=== PATIENT | male | born 1935 | race Caucasian/White ===

== ENCOUNTER 2018-06-23 14:02 | Emergency (ER) | payer MEDICARE, BC ==
[~2018-06-23] VITALS: Ht 172.7 cm; Wt 72.7 kg
[2018-06-23] MEDS ORDERED: LISI-600 PO (17:24)
[2018-06-23] MEDS ORDERED: ASPI-1265 PO (17:24)
[2018-06-23] MEDS ORDERED: CELE-193 PO (17:24)
[2018-06-23 18:36] VITALS: BP 147/67
== END 2018-06-23 18:39 | disposition home or self-care (01) ==
LOC: ER 14:04
DX: I10 Essential (primary) hypertension (principal); Z98.890 Other specified postprocedural states; Z79.82 Long term (current) use of aspirin; Z79.899 Other long term (current) drug therapy
CPT/HCPCS: 93005; 99283

== ENCOUNTER 2021-01-15 07:51 | Day surgery (SDC) | payer MEDICARE, BC ==
[2021-01-08 11:09] LABS: BASOPHILS % (AUTO) 0.5 % (0-1); EOSINOPHILS # (AUTO) 0.1 X10'3 (0-0.9); EOSINOPHILS % (AUTO) 1.8 % (0-6); LYMPHOCYTES # (AUTO) 2.1 X10'3 (1.1-4.8); LYMPHOCYTES % (AUTO) 37.3 % (21-51); MEAN CORPUSCULAR HEMOGLOBIN 31.8 PG (27.0-31.0); MEAN CORPUSCULAR HGB CONC 33.5 g/dL (33.0-36.5); MEAN CORPUSCULAR VOLUME 94.9 FL (78-98); MEAN PLATELET VOLUME 10.1 FL (7.4-10.4); MONOCYTES # (AUTO) 0.5 X10'3 (0-0.9); NEUTROPHILS % (AUTO) 51.4 % (42-75); PRE OP HEMATOCRIT 45.4 % (42.0-52.0); PRE OP HEMOGLOBIN 15.2 g/dL (14.0-17.9); PRE OP PLATELET COUNT 134 X10'3 (140-440); RED BLOOD COUNT 4.79 X10'6 (4.70-6.10); RED CELL DISTRIBUTION WIDTH 13.8 % (11.5-14.5)
[2021-01-08 11:29] LABS: ALBUMIN 3.9 G/DL (3.4-5.0); ALBUMIN/GLOBULIN RATIO 1.2 (1.1-1.5); ALKALINE PHOSPHATASE 137 IU/L (46-116); CALCIUM 8.5 MG/DL (8.5-10.1); CHLORIDE 107 MMOL/L (99-107); CREATININE 0.98 MG/DL (0.60-1.10); PRE OP ALT 23 U/L (30-65); PRE OP ANION GAP 5 (8-16); PRE OP AST 24 U/L (10-37); PRE OP BILIRUB, TOTAL 0.6 MG/DL (0.0-1.0); PRE OP GLUCOSE 84 MG/DL (70-104); PRE OP POTASSIUM 4.6 MMOL/L (3.4-5.1); PRE OP SODIUM 141 MMOL/L (135-145); TOTAL CARBON DIOXIDE 29.3 MMOL/L (24-32); TOTAL PROTEIN 7.2 G/DL (6.4-8.2); eGFR 73 ML/MIN
[2021-01-08 11:30] LABS: BLOOD UREA NITROGEN 21 MG/DL (7-18); BUN/CREATININE RATIO 21.4 (5.4-32.0)
[~2021-01-15] VITALS: Ht 170.2 cm; Wt 71.0 kg
[~2021-01-15 07:51] MED LIST: AMLO2.5T5 PO; BUPIVAcaine/PF 2.5mg/ml (0.25%) 10ml vial ONE; CELE-85 PO; FLO0.4C PO; GABA-530 PO; cefazolin/dext.iso 2gm/100ml IV ONE; famotidine 20mg tablet PO ONE; ringers solution, lacted 1,000 ML IV SCH
[2021-01-15] MEDS ORDERED: BUPIVAcaine 0.5% inj/PF 30 ML ONE (09:38)
[2021-01-15] MEDS ORDERED: propofol 10mg/ml 20ml vial IV ONE (09:54)
[2021-01-15] MEDS ORDERED: proCHLORperazine 10 MG/2 ml inj IV PRN (09:55)
[2021-01-15] MEDS ORDERED: morphine 4 MG/ML inj SYRINge IV PRN (09:55)
[2021-01-15] MEDS ORDERED: meperidine/PF 25mg/ml syringe IV PRN ×3 (09:55)
[2021-01-15] MEDS ORDERED: ondansetron/PF 4mg/2ml inj IV PRN (09:55)
[2021-01-15] MEDS ORDERED: acetaminophen 1,000mg/100ml IV 100 ML IV PRN (09:55)
[2021-01-15] MEDS ORDERED: ringers solution, lacted 1,000 ML IV SCH (09:55)
[2021-01-15] MEDS ORDERED: hydrALAZINE 20mg/ml inj. IV PRN (09:55)
[2021-01-15] MEDS ORDERED: labetalol 20mg/4ml (5mg/ml) syringe IV PRN (09:55)
[2021-01-15] MEDS ORDERED: morphine 2 MG/ML inj. syringe IV PRN (09:55)
[2021-01-15] MEDS ORDERED: fentaNYL/PF 50MCG/1 ML 2ML syringe ONE (09:57)
[2021-01-15] MEDS ORDERED: midazolam 1 mg/ML 2ml injection ONE (09:57)
[2021-01-15] MEDS ORDERED: LIDOcaine 2% (20mg/ml) 5ml vial ONE ×2 (09:59)
[2021-01-15] MEDS ORDERED: 0.9 % SODIUM CHLORIDE 10 ML VIAL ONE ×4 (09:59→10:00)
[2021-01-15] MEDS ORDERED: LIDOcaine 1%/PF 5ML 10 MG/ML VIAL ONE (09:59)
[2021-01-15 10:27] VITALS: BP 142/87
--- NOTE | 2021-01-15 10:27 | NUR ---
Received from OR via [facility] , accompanied by Anesthesiologist GABRIELLE and report given by Anesthesiolgist. PATIENT WITH 20G PIV IN LEFT UE. VSS. DENIES PAIN. RIGHT WRIST DRESISNG IS CDI. NO DRAINAGE Addendum: 01/15/21 at 1037 by Hugo Braxton RN, RN Amended: Links added.
[2021-01-15 10:34] VITALS: BP 142/87
[2021-01-15 10:37] VITALS: BP 142/87
[2021-01-15 10:47] VITALS: BP 141/81
[2021-01-15 10:48] VITALS: BP 140/85
[2021-01-15 10:51] VITALS: BP 140/85
--- NOTE | 2021-01-15 10:57 | NUR ---
PATIENT HAS MET ALL CRITERIA FOR TRANSFER HOME. VSS. DRESSINGS INTACT. ALL DC CRITERIA HAS BEEN MET. OUT VIA WHEELCHAIR. DRESSING TO WRIST WAS CDI AND PATIENT ALERT AND ORIENTED. ICE PACK WITH PATIENT. \ Addendum: 01/15/21 at 1113 by Hugo Braxton RN, RN Amended: Links added.
== END 2021-01-15 10:57 | disposition home or self-care (01) ==
LOC: PAS 07:51
PROVIDERS: ATTEND Orthopaedic Surgery Hand Surgery
DX: G56.01 Carpal tunnel syndrome, right upper limb (principal); M17.0 Bilateral primary osteoarthritis of knee; I10 Essential (primary) hypertension; M19.012 Primary osteoarthritis, left shoulder; M19.011 Primary osteoarthritis, right shoulder; N40.0 Benign prostatic hyperplasia without lower urinary tract symptoms; M16.11 Unilateral primary osteoarthritis, right hip; Z20.822 Contact with and (suspected) exposure to COVID-19; Z79.82 Long term (current) use of aspirin; Z79.899 Other long term (current) drug therapy; Z96.643 Presence of artificial hip joint, bilateral; Z98.890 Other specified postprocedural states; Z86.12 Personal history of poliomyelitis; Z90.49 Acquired absence of other specified parts of digestive tract; Z80.9 Family history of malignant neoplasm, unspecified
CPT/HCPCS: 36415; 64721; 80053; 82948; 85025; 93005; A6222; J2001; J2250; J2704; J3010; J3490; U0003; U0005; Z7506; Z7512; A4215; J7120

== ENCOUNTER 2021-02-12 07:46 | Day surgery (SDC) | payer MEDICARE, BC ==
[2021-02-05 16:06] LABS: BASOPHILS % (AUTO) 0.7 % (0-1); EOSINOPHILS # (AUTO) 0.1 X10'3 (0-0.9); EOSINOPHILS % (AUTO) 2.3 % (0-6); LYMPHOCYTES # (AUTO) 2.4 X10'3 (1.1-4.8); LYMPHOCYTES % (AUTO) 37.2 % (21-51); MEAN CORPUSCULAR HEMOGLOBIN 32.9 PG (27.0-31.0); MEAN CORPUSCULAR HGB CONC 34.4 g/dL (33.0-36.5); MEAN CORPUSCULAR VOLUME 95.7 FL (78-98); MEAN PLATELET VOLUME 9.7 FL (7.4-10.4); MONOCYTES # (AUTO) 0.5 X10'3 (0-0.9); MONOCYTES % (AUTO) 8.1 % (2-12); NEUTROPHILS # (AUTO) 3.3 X10'3 (1.8-7.7); NEUTROPHILS % (AUTO) 51.7 % (42-75); PRE OP HEMATOCRIT 42.9 % (42.0-52.0); PRE OP HEMOGLOBIN 14.8 g/dL (14.0-17.9); PRE OP PLATELET COUNT 134 X10'3 (140-440); RED BLOOD COUNT 4.48 X10'6 (4.70-6.10); RED CELL DISTRIBUTION WIDTH 13.8 % (11.5-14.5)
[2021-02-05 16:24] LABS: ALBUMIN 3.8 G/DL (3.4-5.0); ALBUMIN/GLOBULIN RATIO 1.2 (1.1-1.5); ALKALINE PHOSPHATASE 114 IU/L (46-116); BLOOD UREA NITROGEN 21 MG/DL (7-18); BUN/CREATININE RATIO 17.1 (5.4-32.0); CALCIUM 8.4 MG/DL (8.5-10.1); CHLORIDE 105 MMOL/L (99-107); CREATININE 1.23 MG/DL (0.60-1.10); PRE OP ALT 22 U/L (30-65); PRE OP ANION GAP 7 (8-16); PRE OP AST 26 U/L (10-37); PRE OP BILIRUB, TOTAL 0.4 MG/DL (0.0-1.0); PRE OP GLUCOSE 108 MG/DL (70-104); PRE OP POTASSIUM 4.5 MMOL/L (3.4-5.1); PRE OP SODIUM 138 MMOL/L (135-145); TOTAL CARBON DIOXIDE 25.9 MMOL/L (24-32); eGFR 56 ML/MIN
[~2021-02-12] VITALS: Ht 172.7 cm; Wt 72.6 kg
[2021-02-12 07:25] VITALS: BP 140/84
[~2021-02-12 07:46] MED LIST changes: +LIDOcaine 1% 30ml preserv. free vial ONE; -cefazolin/dext.iso 2gm/100ml IV ONE; +clindamycin-Cleocin 900mg/D5W 50 ML IV ONE
[2021-02-12] MEDS ORDERED: midazolam 1 mg/ML 2ml injection ONE (08:24)
[2021-02-12] MEDS ORDERED: fentaNYL/PF 50MCG/1 ML 2ML syringe ONE (08:24)
[2021-02-12] MEDS ORDERED: ketorolac trometh. 30mg/ml inj. ONE (08:40)
[2021-02-12 09:48] VITALS: BP 118/92
--- NOTE | 2021-02-12 09:48 | NUR ---
Received from OR via [facility] , accompanied by Anesthesiologist MARTY and report given by Anesthesiolgist. PATIENT WITH 20G PIV IN RIGHT UE RUNNING LR AT 100, DENIES PAIN. VSS. LEFT WRIST DRESSING IS CDI. NO DRAINAGE + CAP REFILL TO0 ALL FINGERS AND THUMB. Addendum: 02/12/21 at 0955 by Hugo Braxton RN, RN Amended: Links added.
[2021-02-12 10:00] VITALS: BP 124/101
[2021-02-12 10:10] VITALS: BP 118/91
--- NOTE | 2021-02-12 10:18 | NUR ---
ALL DC CRITERIA HAS BEEN MET. ALL QUESTIONS ANDWERED WE REVIEWED DC INSTRUCTIONS. VSS. . Transferred via WHEELCHAIR WITH Belongings . Special Issues communicated to SPOUSE. DRESSING TO WRIST IS CDI. ICE SENT WITH PATIENT. Addendum: 02/12/21 at 1020 by Hugo Braxton RN, RN Amended: Links added.
== END 2021-02-12 10:18 | disposition home or self-care (01) ==
LOC: PAS 07:46
PROVIDERS: ATTEND Orthopaedic Surgery Hand Surgery
DX: G56.02 Carpal tunnel syndrome, left upper limb (principal); M19.012 Primary osteoarthritis, left shoulder; M19.011 Primary osteoarthritis, right shoulder; M16.11 Unilateral primary osteoarthritis, right hip; Z20.822 Contact with and (suspected) exposure to COVID-19; Z98.890 Other specified postprocedural states; Z79.82 Long term (current) use of aspirin; Z79.899 Other long term (current) drug therapy; Z96.643 Presence of artificial hip joint, bilateral; Z80.9 Family history of malignant neoplasm, unspecified
CPT/HCPCS: 36415; 64721; 80053; 85025; A6222; J1885; J2001; J2250; J3010; J3490; U0003; U0005; Z7506; Z7512; A4215; J7120

== ENCOUNTER 2021-06-09 02:46 | Emergency (ER) | payer OTHER, MEDICARE, BC ==
[~2021-06-09] VITALS: Ht 172.7 cm; Wt 72.7 kg
[~2021-06-09 02:46] MED LIST changes: -BUPIVAcaine/PF 2.5mg/ml (0.25%) 10ml vial ONE; -LIDOcaine 1% 30ml preserv. free vial ONE; -clindamycin-Cleocin 900mg/D5W 50 ML IV ONE; -famotidine 20mg tablet PO ONE; -ringers solution, lacted 1,000 ML IV SCH
[2021-06-09] MEDS ORDERED: DIAZ-351 PO (03:13)
[2021-06-09] MEDS ORDERED: PRED20TA PO (03:13)
[2021-06-09] MEDS ORDERED: METH-797 PO (03:13)
[2021-06-09] MEDS ORDERED: dexamethasone 4mg tablet PO ONE (03:15)
[2021-06-09] MEDS ORDERED: ketorolac tromethamine 15mg/ml inj. IM ONE (03:15)
[2021-06-09 03:34] VITALS: BP 131/95
== END 2021-06-09 03:49 | disposition home or self-care (01) ==
LOC: ER 02:46
DX: S39.012A Strain of muscle, fascia and tendon of lower back, initial encounter (principal); M54.42 Lumbago with sciatica, left side; M62.830 Muscle spasm of back; I10 Essential (primary) hypertension; Z98.890 Other specified postprocedural states; X58.XXXA Exposure to other specified factors, initial encounter; Y93.89 Activity, other specified; Y92.89 Other specified places as the place of occurrence of the external cause; Y99.8 Other external cause status
CPT/HCPCS: 96372; 99283; J1885

== ENCOUNTER 2023-01-16 04:11 | Emergency (ER) | payer OTHER, MEDICARE, BC ==
[~2023-01-16] VITALS: Ht 172.7 cm; Wt 72.3 kg
[~2023-01-16 04:11] MED LIST changes: +DIAZ-351 PO; +METH-797 PO
[2023-01-16 04:14] VITALS: TEMP 98.4
[2023-01-16] MEDS ORDERED: HYDROcodone/acetaminophen 10/325mg tab PO ONE ×2 (04:30→07:15)
[2023-01-16] MEDS ORDERED: LIDOcaine 1% 30ml preserv. free vial IJ ONE (04:40)
--- NOTE | 2023-01-16 04:51 | NUR ---
lidocain placed on bedside table for er md.
[2023-01-16] MEDS ORDERED: HYDR-3965 PO ×2 (05:05→07:43)
[2023-01-16 05:46] VITALS: BP 119/78; PULSE 55; RESP 14; O2SAT 95
[2023-01-16 06:08] LABS: APPEARANCE,SYNOVIAL FLUID CLOUDY; COLOR,SYNOVIAL FLUID YELLOW; LYMPHOCYTES,SYNOVIAL FLUID 2 % (0-75); MONOCYTES,SYNOVIAL FLUID 8 % (0-0); NEUTROPHILS,SYNOVIAL FLUID 90 % (0-25); SYN RBC 4050 /CU MM (0); SYN WBC 10850 /CU MM (0-200)
--- NOTE | 2023-01-16 06:15 | NUR ---
BEDSIDE REPORT GIVEN BY RON AARNO. PT RESTING IN BED, AWAKE AND ALERT. AWATING LAB RESULTS. NO DISTRESS NOTED.
[2023-01-16 06:19] LABS: SYNOVIAL FLUID CRYSTALS QT NO CRYSTALS SEEN
[2023-01-16 06:49] LABS: GLUCOSE,SYNOVIAL FLUID 104 MG/DL; TOTAL PROTEIN,SYNOVIAL FLUID 3.6 GM/DL
--- NOTE | 2023-01-16 07:10 | NUR ---
DR. MANNING AT BEDSIDE.
[2023-01-16] MEDS ORDERED: LIDOcaine 2% 5ml vial 0 MG in normal saline 100ml IV soln 100 ML IV ONE (07:15)
[2023-01-16] MEDS ORDERED: LIDOCAINE 2% (20mg/ml) w/EPINEPHRINE 1:200,000-PF 10 ML inj. SQ ONE (07:25)
[2023-01-16] MEDS ORDERED: LIDOcaine 1% W/epiNEPHrine 1:100,000 20ml vial SQ ONE ×2 (07:30→07:32)
== END 2023-01-16 07:58 | disposition home or self-care (01) ==
LOC: ER 04:11
DX: M25.462 Effusion, left knee (principal); I10 Essential (primary) hypertension; Z79.899 Other long term (current) drug therapy
CPT/HCPCS: 20610; 73564; 82945; 82948; 84157; 87070; 89051; 89060; 99284; J3490; A6258; A6449

== ENCOUNTER 2023-08-18 19:12 | Emergency (ER) | payer OTHER, MEDICARE, BC ==
[~2023-08-18] VITALS: Ht 174 cm; Wt 72.7 kg
[~2023-08-18 19:12] MED LIST changes: +CELE-127 PO; -CELE-85 PO
[2023-08-18 19:21] VITALS: TEMP 98.4
[2023-08-18 22:08] LABS: PLATELET COUNT 114 X10'3 (140-440); RED BLOOD COUNT 4.39 X10'6 (4.70-6.10)
[2023-08-18 22:09] LABS: BASOPHILS # (AUTO) 0.1 X10'3 (0-0.2); BASOPHILS % (AUTO) 0.9 % (0-1); EOSINOPHILS # (AUTO) 0.2 X10'3 (0-0.9); EOSINOPHILS % (AUTO) 2.9 % (0-6); HEMATOCRIT 42.1 % (42.0-52.0); HEMOGLOBIN 14.3 g/dl (14.0-17.9); LYMPHOCYTES # (AUTO) 2.5 X10'3 (1.1-4.8); MEAN CORPUSCULAR HEMOGLOBIN 32.6 PG (27.0-31.0); MEAN CORPUSCULAR VOLUME 95.9 FL (78-98); MEAN PLATELET VOLUME 10.3 FL (7.4-10.4); MONOCYTES # (AUTO) 0.5 X10'3 (0-0.9); MONOCYTES % (AUTO) 8.8 % (2-12); NEUTROPHILS # (AUTO) 2.6 X10'3 (1.8-7.7); NEUTROPHILS % (AUTO) 44.4 % (42-75); RED CELL DISTRIBUTION WIDTH 13.5 % (11.5-14.5); WHITE BLOOD COUNT 5.8 X10'3 (4.5-11.0)
[2023-08-18 22:14] LABS: ALBUMIN 3.6 G/DL (3.4-5.0); ANION GAP 9 (8-16); BLOOD UREA NITROGEN 14 MG/DL (7-18); BUN/CREATININE RATIO 17.1 (10.0-20.0); CALCIUM 8.3 MG/DL (8.5-10.1); CHLORIDE 103 MMOL/L (99-107); CREATININE 0.82 MG/DL (0.60-1.10); GLUCOSE 81 MG/DL (70-104); POTASSIUM 4.2 MMOL/L (3.5-5.1); SODIUM 137 MMOL/L (135-145); TOTAL CARBON DIOXIDE 25.2 MMOL/L (24-32); eCRCL 64 ML/MIN; eGFR 89 ML/MIN
[2023-08-18] MEDS ORDERED: OXYC-145 PO (22:54)
[2023-08-18] MEDS ORDERED: PRED20TA PO (22:54)
[2023-08-18 23:04] LABS: BILIRUBIN,URINE NEGATIVE (Neg); CLARITY,URINE CLEAR (Clear); COLOR,URINE YELLOW (Yellow); GLUCOSE, URINE NEGATIVE (Neg); KETONES,URINE NEGATIVE (Neg); LEUKOCYTE ESTERASE ,URINE NEGATIVE (Neg); NITRITES, URINE NEGATIVE (Neg); OCCULT BLOOD,URINE NEGATIVE (Neg); PROTEIN,URINE NEGATIVE (Neg); UROBILINOGEN,URINE 0.2 E.U/dL (0.2-1.0)
[2023-08-18 23:06] LABS: UA COLLECTION TYPE CLN CATCH MIDSTREAM
[2023-08-18] MEDS: ondansetron/PF 4mg/2ml inj IV ONE (23:06)
[2023-08-18] MEDS: morphine 4 MG/ML inj SYRINge IV ONE (23:18)
[2023-08-18 23:52] VITALS: BP 121/78; PULSE 60; RESP 18; O2SAT 94
== END 2023-08-19 00:01 | disposition home or self-care (01) ==
LOC: ER 19:12
DX: M25.551 Pain in right hip (principal); I10 Essential (primary) hypertension; Z79.899 Other long term (current) drug therapy
CPT/HCPCS: 71045; 72192; 73502; 80048; 81003; 85025; 93005; 96374; 96375; 99285; J2270; J2405

== ENCOUNTER 2023-08-22 17:26 | Emergency (ER) | payer OTHER, MEDICARE, BC ==
[~2023-08-22] VITALS: Ht 172.7 cm; Wt 72.8 kg
[~2023-08-22 17:26] MED LIST changes: +OXYC-145 PO; +PRED20TA PO
[2023-08-22 17:29] VITALS: BP 175/103; PULSE 62; RESP 18; TEMP 98.5; O2SAT 98
== END 2023-08-22 19:30 | disposition home or self-care (01) ==
LOC: ER 17:27
DX: J06.9 Acute upper respiratory infection, unspecified (principal); Z20.822 Contact with and (suspected) exposure to COVID-19; I10 Essential (primary) hypertension
CPT/HCPCS: 36415; 71045; 87502; 87503; 87811; 99284

== ENCOUNTER 2024-03-08 08:26 | Outpatient (CLI) | payer MEDICARE, BC ==
[~2024-03-08 08:26] MED LIST changes: -PRED20TA PO
== END 2024-03-08 23:59 | disposition home or self-care (01) ==
LOC: MRI02 08:26
PROVIDERS: ATTEND Family Medicine Sports Medicine
DX: M50.31 Other cervical disc degeneration, high cervical region (principal); M48.02 Spinal stenosis, cervical region; M43.12 Spondylolisthesis, cervical region; M54.16 Radiculopathy, lumbar region; M17.0 Bilateral primary osteoarthritis of knee; M77.9 Enthesopathy, unspecified
CPT/HCPCS: 72141

== ENCOUNTER 2024-03-14 11:01 | Emergency (ER) | payer MEDICARE, BC ==
[~2024-03-14] VITALS: Ht 172.7 cm; Wt 75.0 kg
[2024-03-14 11:01] VITALS: BP 121/80; PULSE 77; TEMP 98.5; O2SAT 96
[2024-03-14] MEDS ORDERED: orphenadrine citrate 60mg/2ml inj. IM ONE (11:35)
[2024-03-14] MEDS ORDERED: BACL10TA2 PO (11:36)
[2024-03-14] MEDS ORDERED: LIDO700A47 TOP (11:37)
[2024-03-14] MEDS ORDERED: HYDR-3964 PO (11:43)
[2024-03-14] MEDS: LIDOcaine 5% patch TP STA (12:00)
[2024-03-14 12:01] VITALS: RESP 16
[2024-03-14] MEDS: ketorolac trometh 15mg/ml vial 15 MG/ML ML IM ONE (12:01)
[2024-03-14] MEDS: acetaminophen 325mg tablet PO ONE (12:01)
== END 2024-03-14 12:07 | disposition home or self-care (01) ==
LOC: ER 11:01
DX: M50.31 Other cervical disc degeneration, high cervical region (principal); I10 Essential (primary) hypertension; Z79.899 Other long term (current) drug therapy; Z79.2 Long term (current) use of antibiotics
CPT/HCPCS: 96372; 99283; J1885